=== PATIENT | female | born 1990 | race Caucasian/White ===

== ENCOUNTER 2016-10-03 05:00 | Emergency (ER) | payer BC ==
[~2016-10-03] VITALS: Wt 97.5 kg
[2016-10-03 05:31] LABS: ADD SCAN DIFF NO
[2016-10-03 05:32] LABS: BASOPHILS % 0.4 % (0.0-2.0); EOSINOPHILS # 0.2 10^3/ul (0.0-0.5); EOSINOPHILS % 1.6 % (0.0-7.0); HEMATOCRIT 39.4 % (37.0-47.0); HEMOGLOBIN 13.3 g/dl (12.0-16.0); LYMPHOCYTES # 2.6 10^3/ul (0.8-2.9); LYMPHOCYTES % 27.9 % (15.0-51.0); MEAN CORPUSCULAR HEMOGLOBIN 28.7 pg (29.0-33.0); MEAN CORPUSCULAR HGB CONC 33.8 g/dl (32.0-37.0); MEAN CORPUSCULAR VOLUME 84.9 fl (82.0-101.0); MONOCYTE # 0.4 10^3/ul (0.3-0.9); MONOCYTES % 4.2 % (0.0-11.0); NEUTROPHILS % 65.1 % (39.0-77.0); PLATELET COUNT 317 10^3/UL (140-415); RED BLOOD COUNT 4.64 10^6/ul (4.20-5.40); WHITE BLOOD COUNT 9.2 10^3/ul (4.8-10.8)
[2016-10-03 05:47] LABS: ALBUMIN 3.9 g/dl (3.3-4.9); POTASSIUM 3.5 mmol/L (3.5-5.1)
[2016-10-03 05:49] LABS: CREATININE 0.7 mg/dl (0.44-1.00); INR 0.9; PROTIME 12.1 Sec (12.2-14.2); PT RATIO 0.9
[2016-10-03 05:50] LABS: ALBUMIN/GLOBULIN RATIO 1.14; BILIRUBIN,INDIRECT 0.3 mg/dl (0-1.1); BILIRUBIN,TOTAL 0.3 mg/dl (0.2-1.3); CALCIUM 8.7 mg/dl (8.4-10.2); TOTAL PROTEIN 7.3 g/dl (6.1-8.1)
--- NOTE | 2016-10-03 05:58 | RADRPT ---
PROCEDURE: ULTRASOUND LIMITED ABDOMEN CLINICAL INDICATION: 25-year-old female with abdominal pain. TECHNIQUE: Multiple sonographic of the right upper quadrant of the abdomen were obtained. The imag es were reviewed on a PACS workstation. COMPARISON: None. FINDINGS: The pancreas is partially visualized and is otherwise without abnormal echogenicity. The liver displays normal echogenicity. The liver measures 18.1 cm in length. No evidence of intrah epatic biliary ductal dilatation is seen. The portal and hepatic veins are unremarkable. The gallbladder retains multiple small mobile shadowing stones. Gallbladder wall is mildly thickene d measuring 3.7 mm. No pericholecystic fluid is seen. The common bile duct measures 8.6 mm and is no t dilated. The right kidney displays normal echogenicity. The right kidney measures 10.4 cm. No caliectasis or hydronephrosis is seen. No free fluid is seen. IMPRESSION: Cholelithiasis with mildly thickened gallbladder wall. .Shaquille Wiseman MD, MD Date Time Electronically viewed and signed by .Shaquille Wiseman MD, on 10/03/2016 05:58 .M/
[2016-10-03] MEDS ORDERED: KETOROLAC 15 MG INJ IV STA (06:25)
[2016-10-03] MEDS ORDERED: SOD CHLORIDE 0.9% 1,000 ML IV STA (06:25)
[2016-10-03] MEDS ORDERED: ONDANSETRON 4 MG INJ IV STA (06:25)
--- NOTE | 2016-10-03 06:38 | ERD ---
ER Documentation Chief Complaint Date/Time DATE: 10/03/16 TIME: 06:10 Chief Complaint epigastric pain and Left upper Quadrant pain, nausea x2 weeks HPI 25-year-old female ambulatory to the ED complaining of a 2 week history of intermittent, worsening, moderate to severe, nonradiating sharp and achy epigastric/right upper quadrant pain. On the first several days of the symptoms had some mild, nonbloody, non-mucoid diarrhea which is resolved but continues to have nausea but no vomiting. No chest pain or palpitations. No shortness of breath or cough. No skin rash. Denies dysuria, polyuria, hematuria or flank pain. No vaginal discharge or bleeding. No relieving or exacerbating factors. No fevers or chills. The pain became severe earlier this morning and she went to an urgent care was treated with tramadol for pain and referred to the ED for further evaluation. ROS All systems reviewed and are negative except as per history of present illness. Allergies Allergies: Coded Allergies: No Known Allergy (Unverified , 10/03/16) PMhx/Soc Reviewed in chart, as per HPI Medical and Surgical Hx: pt denies Medical Hx, pt denies Surgical Hx History of Surgery: Yes Anesthesia Reaction: No Hx Neurological Disorder: No Hx Respiratory Disorders: No Hx Cardiac Disorders: No Hx Psychiatric Problems: No Hx Miscellaneous Medical Probl: No Hx Alcohol Use: No Hx Substance Use: No Hx Tobacco Use: No Smoking Status: Never smoker FmHx No diabetes, stroke or cancer. Mother: Cholecystectomy Physical Exam Vitals Vital Signs Date Time Temp Pulse Resp B/P Pulse Ox O2 Delivery O2 Flow Rate FiO2 10/03/16 05:04 97.9 59 20 135/76 99 Physical Exam Const: Alert, moderate distress due to pain. Head: Atraumatic Eyes: Sclera anicteric, conjunctiva noninjected ENT: Normal External Ears, Nose and Mouth. Neck: Full range of motion. Nontender. Resp: Breath sounds are equal and clear to auscultation bilaterally Cardio: Regular rate and rhythm, no murmurs Abd: Soft, obese. Mild to moderate epigastric and right upper quadrant tenderness. Negative Khan sign. No rebound or guarding. No right lower quadrant tenderness or McBurney's point tenderness. Skin: No petechiae or rashes Back: No midline or flank tenderness. No CVA tenderness Ext: No cyanosis, or edema Neur: Awake and alert. No focal deficit observed. Psych: Normal Mood and Affect. Patient does not appear anxious or depressed. Result Diagram: 10/03/1651910/03/16519 Results 24 hrs Laboratory Tests Test 10/03/16 05:20 White Blood Count 9.210^3/ul Red Blood Count 4.6410^6/ul Hemoglobin 13.3g/dl Hematocrit 39.4% Mean Corpuscular Volume 84.9fl Mean Corpuscular Hemoglobin 28.7pg Mean Corpuscular Hemoglobin Concent 33.8g/dl Red Cell Distribution Width 13.0% Platelet Count 25189^3/UL Mean Platelet Volume 10.0fl Neutrophils % 65.1% Lymphocytes % 27.9% Monocytes % 4.2% Eosinophils % 1.6% Basophils % 0.4% Nucleated Red Blood Cells % 0.0/100WBC Neutrophils # 6.010^3/ul Lymphocytes # 2.610^3/ul Monocytes # 0.410^3/ul Eosinophils # 0.210^3/ul Basophils # 0.010^3/ul Nucleated Red Blood Cells # 0.010^3/ul Prothrombin Time 12.1Sec Prothrombin Time Ratio 0.9 INR International Normalized Ratio 0.90 Sodium Level 143mmol/L Potassium Level 3.5mmol/L Chloride Level 104mmol/L Carbon Dioxide Level 26mmol/L Anion Gap 17 Blood Urea Nitrogen 14mg/dl Creatinine 0.70mg/dl Glucose Level 96mg/dl Calcium Level 8.7mg/dl Total Bilirubin 0.3mg/dl Direct Bilirubin 0.00mg/dl Indirect Bilirubin 0.3mg/dl Aspartate Amino Transf (AST/SGOT) 29IU/L Alanine Aminotransferase (ALT/SGPT) 54IU/L Alkaline Phosphatase 66IU/L Total Protein 7.3g/dl Albumin 3.9g/dl Globulin 3.40g/dl Albumin/Globulin Ratio 1.14 Lipase 246U/L Serum HCG, Qualitative NEGATIVE Current Medications Medications (Trade) Dose Ordered Sig/Susan Route PRN Reason Start Time Stop Time Status Last Admin Dose Admin Sodium Chloride (NS) 1,000 ml @ 1,000 mls/hr Q1H STAT IV 10/03/16 06:25 10/03/16 07:24 Ondansetron HCl (Zofran Inj) 4 mg ONCE STAT IV 10/03/16 06:25 10/03/16 06:26 DC Ketorolac Tromethamine (Toradol) 15 mg ONCE STAT IV 10/03/16 06:25 10/03/16 06:26 DC IMAGING: PROCEDURE: ULTRASOUND LIMITED ABDOMEN CLINICAL INDICATION: 25-year-old female with abdominal pain. TECHNIQUE: Multiple sonographic of the right upper quadrant of the abdomen were obtained. The images were reviewed on a PACS workstation. COMPARISON: None. FINDINGS: The pancreas is partially visualized and is otherwise without abnormal echogenicity. The liver displays normal echogenicity. The liver measures 18.1 cm in length. No evidence of intrahepatic biliary ductal dilatation is seen. The portal and hepatic veins are unremarkable. The gallbladder retains multiple small mobile shadowing stones. Gallbladder wall is mildly thickened measuring 3.7 mm. No pericholecystic fluid is seen. The common bile duct measures 8.6 mm and is not dilated. The right kidney displays normal echogenicity. The right kidney measures 10.4 cm. No caliectasis or hydronephrosis is seen. No free fluid is seen. IMPRESSION: Cholelithiasis with mildly thickened gallbladder wall. .Shaquille Wiseman MD, MD Date Time Electronically viewed and signed by .Shaquille Wiseman MD, MD on 10/03/2016 05:58 .M/ Procedures/MDM DOCUMENTS REVIEWED: ED nurse, no prior records MEDICAL DECISION MAKIN-year-old female ambulatory to the ED complaining of a 2 week history of intermittent, worsening, moderate to severe, nonradiating sharp and achy epigastric/right upper quadrant pain. Presentation and ultrasound consistent with cholelithiasis. Ultrasound reveals borderline gallbladder wall thickening without common bile duct dilatation, pericholecystic fluid or other signs of cholecystitis or choledocholithiasis. LFTs and lipase are normal. No pancreatitis or cholangitis. No right or left lower quadrant tenderness signs of appendicitis or appendicitis. Doubt bowel obstruction. Not . No urinary tract infection or pyelonephritis. Abdomen exam is otherwise benign without rebound, guarding or signs of peritonitis. Pain resolved with analgesics, antiemetics and IV hydration. Stable for discharge with precautionary instructions and outpatient follow-up as counseled. Counseled patient and regarding diagnostic workup, diagnosis and need for followup. Understands to return to ED if symptoms recur, worsen or any other concerns. Departure Diagnosis: Primary Impression: Acute abdominal pain in right upper quadrant Additional Impressions: Cholelithiasis Cholelithiasis location: gallbladder Cholecystitis presence: without cholecystitis Biliary obstruction: without biliary obstruction Qualified Code : K80.20 - Calculus of gallbladder without cholecystitis without obstruction Biliary colic Condition: Stable (Improved) REBECCA JOEL MD October 03, 2016 06:38
[2016-10-03] MEDS ORDERED: CIPR500T4 PO (06:40)
[2016-10-03] MEDS ORDERED: ONDA4TAB14 PO (06:40)
[2016-10-03] MEDS ORDERED: HYDR-906 PO (06:40)
[2016-10-03] MEDS ORDERED: morphine 4 MG/ML VIAL IV STA (07:15)
[2016-10-03 07:26] LABS: ADD UMIC NO; URINE BILIRUBIN (Dip) NEGATIVE (NEGATIVE); URINE BLOOD (Dip) NEGATIVE (NEGATIVE); URINE COLOR LT. YELLOW (YELLOW); URINE GLUCOSE (Dip) NEGATIVE (NEGATIVE); URINE KETONES (Dip) NEGATIVE (NEGATIVE); URINE LEUKOCYTE ESTERASE (Dip) NEGATIVE (NEGATIVE); URINE NITRITE (Dip) NEGATIVE (NEGATIVE); URINE TOTAL PROTEIN (Dip) NEGATIVE (NEGATIVE); URINE UROBILINOGEN (Dip) 0.2 E.U./dL (0.1-1.0)
[2016-10-03 07:27] VITALS: BP 103/53; PULSE 55; RESP 18; TEMP 97.9
[2016-10-03] MEDS ORDERED: HYDROCODONE/APAP (5/325) TAB PO ONE (08:30)
== END 2016-10-03 08:25 | disposition home or self-care (01) ==
LOC: E/R 05:00
DX: R10.11 Right upper quadrant pain (principal); K80.70 Calculus of gallbladder and bile duct without cholecystitis without obstruction
CPT/HCPCS: 36415; 76705; 80053; 81003; 83690; 84703; 85025; 85610; 96374; 96375; J1885; J2270; J2405; J7030; Z7502; Z7610

== ENCOUNTER → 2017-05-11 | Emergency (ER) | payer BC ==
[~2017-05-11] VITALS: Ht 160 cm; Wt 98.4 kg
[~2017-05-11] MED LIST: ACETAMINOPHEN 325 MG TAB PO ONE; CIPR500T4 PO; HYDR-906 PO; IBUP-1542 PO; IBUPROFEN 600 MG TAB PO ONE; ONDA4TAB14 PO; PHEN-538 PO
[2017-05-11 21:43] VITALS: Ht 160 cm; Wt 98.4 kg
--- NOTE | 2017-05-11 23:00 | ERD ---
ER Documentation Chief Complaint Chief Complaint painful urination x 2 weeks HPI 26-year-old female presents here to emergency department for complaints of dysuria hematuria that started 2 weeks ago, worse today. Started to have fever today. Patient's complaint of pain upon urination, burning pain,6/10 scale, accompanied with urinary urgency and frequency. Patient any flank pain. Patient denies any vaginal itching or vaginal discharge. ROS All systems reviewed and are negative except as per history of present illness. Medications Home Meds Active Scripts Ciprofloxacin Hcl* (Ciprofloxacin Hcl*) 500 Mg Tablet, 500 MG PO BID for 7 Days , TAB Prov:REBECCA JOEL MD 10/03/16 Hydrocodone/Acetaminophen ([place] 5-325 Tablet) 1 Each Tablet, 1 TAB PO Q6H Y for PAIN, #12 TAB Prov:REBECCA JOEL MD 10/03/16 Ondansetron (Ondansetron Odt) 4 Mg Tab.rapdis, 4 MG PO Q6H Y for NAUSEA AND/OR VOMITING, #10 TAB Prov:REBECCA JOEL MD 10/03/16 Allergies Allergies: Coded Allergies: No Known Allergy (Unverified , 10/03/16) PMhx/Soc Medical and Surgical Hx: pt denies Medical Hx History of Surgery: Yes Anesthesia Reaction: No Hx Neurological Disorder: No Hx Respiratory Disorders: No Hx Cardiac Disorders: No Hx Psychiatric Problems: No Hx Miscellaneous Medical Probl: No Hx Alcohol Use: No Hx Substance Use: No Hx Tobacco Use: No Smoking Status: Never smoker FmHx Family History: No coronary disease, No diabetes, No other Physical Exam Vitals Vital Signs Date Time Temp Pulse Resp B/P Pulse Ox O2 Delivery O2 Flow Rate FiO2 05/11/17 21:43 100.7 102 20 132/77 97 Physical Exam GENERAL: The patient is well developed and appropriate for usual state of health, in no apparent distress. CHEST: Clear to auscultation bilaterally. There are no rales, wheezes or rhonchi. HEART: Regular rate and rhythm. No murmurs, clicks, rubs or gallops. No S3 or S4. ABDOMEN: Soft, nontender and nondistended. Good bowel sounds. No rebound or guarding. No gross peritonitis. No gross organomegaly or masses. No Khan sign or McBurney point tenderness. BACK: No midline or flank tenderness. EXTREMITIES: Equal pulses bilaterally. There is no peripheral clubbing, cyanosis or edema. No focal swelling or erythema. Full range of motion. Grossly neurovascularly intact. NEURO: Alert and oriented. Cranial nerves 2-12 intact. Motor strength in all 4 extremities with 5/5 strength. Sensation grossly intact. Normal speech and gait. SKIN: There is no apparent rash or petechia. The skin is warm and dry. HEMATOLOGIC AND LYMPHATIC: There is no evidence of excessive bruising or lymphedema. No gross cervical, axillary, or inguinal lymphadenopathy. Results 24 hrs Laboratory Tests Test 05/11/17 23:13 Bedside Urine pH (LAB) 6.0 Bedside Urine Protein (LAB) 1+ Bedside Urine Glucose (UA) Negative Bedside Urine Ketones (LAB) Negative Bedside Urine Blood 2+ Bedside Urine Nitrite (LAB) Negative Bedside Urine Leukocyte Esterase (L 1+ Current Medications Medications (Trade) Dose Ordered Sig/Susan Route PRN Reason Start Time Stop Time Status Last Admin Dose Admin Ibuprofen (Motrin) 600 mg ONCE ONCE PO 05/11/17 23:00 05/11/17 23:01 DC 05/11/17 23:05 Acetaminophen (Tylenol Tab) 650 mg ONCE ONCE PO 05/11/17 23:00 12 23:01 DC 05/11/17 23:05 Patient was given medicines for fever control here in the emergency department. After treatment, patient temperature improved and lower. Patient appears well and is hemodynamically stable. Procedures/MDM Medical Decision Making: Patients symptoms are consistent with urinary tract infection. There is low suspicion for pyelonephritis. There is low suspicion for abdominal emergencies at this time. Patients abdominal exam is normal. There is low suspicion for sepsis. Patient appears well and is hemodynamically stable. Disposition: Home. Stable Prescription ciprofloxacin, Pyridium, ibuprofen Tylenol Instructions: Patient is advised to take medications as prescribed. Patient is advised to rest, increase fluid intake and do good perineal hygiene. Patient is advised that if symptoms are worse, severe abdominal pain, uncontrolled vomiting , high fever, severe flank pain, worst signs and symptoms, to return to the emergency department immediately. Otherwise, patient can follow up with primary care doctor in 5-7 days. Disclaimer: Inadvertent spelling and grammatical errors are likely due to EHR/ dictation software use and do not reflect on the overall quality of patient care. Also, please note that the electronic time recorded on this note does not necessarily reflect the actual time of the patient encounter. Departure Diagnosis: Primary Impression: UTI (urinary tract infection) Urinary tract infection type: acute cystitis Hematuria presence: without hematuria Qualified Code: N30.00 - Acute cystitis without hematuria Condition: Stable Patient Instructions: Understanding Urinary Tract Infections (UTIs) Additional Instructions: Patient is advised to take medications as prescribed. Patient is advised to rest , increase fluid intake and do good perineal hygiene. Patient is advised that if symptoms are worse, severe abdominal pain, uncontrolled vomiting, high fever , severe flank pain, worst signs and symptoms, to return to the emergency department immediately. Otherwise, patient can follow up with primary care doctor in 5-7 days. NABOR PATEL NP May 11, 2017 23:00
[2017-05-11 23:12] LABS: URINE BLOOD (Dip) POC 2+ (NEGATIVE)
[2017-05-11 23:52] VITALS: BP 128/75; PULSE 90; RESP 20; TEMP 99.5
== END | disposition home or self-care (01) ==
LOC: FTE 21:41
DX: N39.0 Urinary tract infection, site not specified (principal)
CPT/HCPCS: 81003; Z7610; 99283

== ENCOUNTER 2017-07-15 00:14 | Emergency (ER) | END 2017-07-15 07:38 | disposition home or self-care (01) ==

== ENCOUNTER 2018-07-17 09:26 | Emergency (ER) | payer BC ==
[~2018-07-17] VITALS: Ht 172.7 cm; Wt 115.0 kg
[~2018-07-17 09:26] MED LIST changes: -ACETAMINOPHEN 325 MG TAB PO ONE; +HYDR-4011 PO; -HYDR-906 PO; -IBUPROFEN 600 MG TAB PO ONE; +NITR-58 PO; +PHEN-537 PO
[2018-07-17 09:31] VITALS: Ht 172.7 cm; Wt 115.0 kg
[2018-07-17] MEDS ORDERED: ALBUTEROL 0.083% (NEB) 2.5 MG/3 ML AMP HHN STA (10:35)
[2018-07-17] MEDS ORDERED: predniSONE 20 MG TAB PO ONE (11:00)
[2018-07-17] MEDS ORDERED: PRED20TA PO (11:36)
[2018-07-17] MEDS ORDERED: D-ME473S2 PO (11:37)
[2018-07-17] MEDS ORDERED: ALBU18HF INHALATION (11:37)
--- NOTE | 2018-07-17 11:39 | ERD ---
ER Documentation Chief Complaint Chief Complaint Complains of a cough x 3 days HPI 27-year-old female presents with coughing for the last 6 days. She may have wheeze at home. She denies any previous history of wheezing or asthma. She has a child at home who is being treated for wheezing and recent URI as well. She has no fevers, chest pain, vomiting, abdominal pain. ROS All systems reviewed and are negative except as per history of present illness. Medications Home Meds Active Scripts Dextromethorphan Hb-Promethazine Hcl* (Promethazine DM* Syrup) 473 Ml Syrup, 5 ML PO Q6 PRN for COUGH for 5 Days, ML Prov:JACQUIE NICOLAS MD 07/17/18 Albuterol Sulfate* (Ventolin HFA*) 18 Gm Hfa.aer.ad, 2 PUFF INHALATION Q4H, #1 INHALER Prov:JACQUIE NICOLAS MD 07/17/18 Prednisone* (Prednisone*) 20 Mg Tab, 60 MG PO DAILY for 4 Days, TAB Start July 18, 2018 Prov:JACQUIE NICOLAS MD 07/17/18 Phenazopyridine Hcl* (Pyridium*) 100 Mg Tab, 100 MG PO TID PRN for URINARY PAIN, #8 TAB Prov:YOLANDA ROSAS NP 07/15/17 Nitrofurantoin Monohyd Macrocr* (Macrobid*) 100 Mg Capsr, 100 MG PO BID for 5 Days, CAP Prov:YLOANDA ROSAS NP 07/15/17 Ibuprofen* (Motrin*) 600 Mg Tab, 600 MG PO Q6H PRN for PAIN AND OR ELEVATED TEMP, #30 TAB Prov:NABOR PATEL NP 05/11/17 Ciprofloxacin Hcl* (Ciprofloxacin Hcl*) 500 Mg Tablet, 500 MG PO BID for 10 Days, TAB Prov:NABOR PATEL NP 05/11/17 Phenazopyridine Hcl* (Pyridium*) 200 Mg Tab, 200 MG PO TID PRN for URINARY PAIN, #6 TAB Prov:NABOR PATEL NP 05/11/17 Ciprofloxacin Hcl* (Ciprofloxacin Hcl*) 500 Mg Tablet, 500 MG PO BID for 7 Days, TAB Prov:REBECCA JOEL MD 10/03/16 Hydrocodone/Acetaminophen ([place] 5-325 Tablet) 1 Each Tablet, 1 TAB PO Q6H PRN for PAIN, #12 TAB Prov:REBECCA JOEL MD 10/03/16 Ondansetron (Ondansetron Odt) 4 Mg Tab.rapdis, 4 MG PO Q6H PRN for NAUSEA AND/OR VOMITING, #10 TAB Prov:REBECCA JOEL MD 10/03/16 Allergies Allergies: Coded Allergies: No Known Allergy (Unverified , 10/03/16) PMhx/Soc History of Surgery: Yes (niya) Anesthesia Reaction: No Hx Neurological Disorder: No Hx Respiratory Disorders: No Hx Cardiac Disorders: No Hx Psychiatric Problems: No Hx Miscellaneous Medical Probl: No Hx Alcohol Use: Yes (social) Hx Substance Use: No Hx Tobacco Use: No FmHx Family History: No diabetes, No coronary disease, No other Physical Exam Vitals Vital Signs Date Temp Pulse Resp B/P (MAP) Pulse Ox O2 O2 Flow FiO2 Time Delivery Rate 07/17/18 82 18 96 21 10:57 07/17/18 98.8 58 20 135/90 97 09:31 (105) Physical Exam Const: No acute distress Head: Atraumatic Eyes: Normal Conjunctiva ENT: Normal External Ears, Nose and Mouth. TMs and oropharynx normal. Neck: Full range of motion. No meningismus. Resp: Clear to auscultation bilaterally. Mild wheeze without rales or retractions. Cardio: Regular rate and rhythm, no murmurs Abd: Soft, non tender, non distended. Normal bowel sounds Skin: No petechiae or rashes Back: No midline or flank tenderness Ext: No cyanosis, or edema Neur: Awake and alert Psych: Normal Mood and Affect Results 24 hrs Current Medications Medications Dose Sig/Susan Start Time Status Last (Trade) Ordered Route PRN Stop Time Admin Dose Reason Admin Prednisone 60 mg ONCE ONCE 07/17/18 DC 07/17/18 (Prednisone) PO 11:00 10:42 07/17/18 11:01 Albuterol 5 mg ONCE STAT 07/17/18 DC 07/17/18 (Proventil HHN 10:35 10:57 0.083% (Neb)) 07/17/18 10:36 Procedures/MDM Patient given prednisone 60 mg by mouth and albuterol treatment. Patient resents with URI symptoms with mild wheezing. She has no signs of pneumonia, respiratory distress, hypoxemia. No comment of chest pain or abdominal pain or additional concerning complaints or findings. She likely has a viral URI with wheezing will be treated with short course prednisone, Ventolin, promethazine D M, primary care follow-up and return precautions. The patient was stable with no new complaints during the ER course. Clinically, there is no current evidence to suggest meningitis, sepsis, acute abdomen, pneumonia, stroke, acute coronary syndrome, pulmonary embolism, aortic dissection or any other emergent condition appearing to require further evaluation or hospitalization. Patient counseled regarding my diagnostic impression and care plan. Prior to discharge all questions answered. Pt agrees with treatment plan and understands strict return precautions. Pt is instructed to follow up with primary care provider within 24- 48 hours. Precautionary instructions provided including instructions to return to the ER if not improving or for any worsening or changing symptoms or concerns. Departure Diagnosis: Primary Impression: Wheeze Additional Impression: Cough Condition: Stable Patient Instructions: Uri, Viral W/ Wheezing (Adult) Additional Instructions: Likely viral illness should resolve in next 3-5 days. Recheck for new or worsening symptoms with primary care doctor. JACQUIE NICOLAS MD Jul 17, 2018 11:39
[2018-07-17 11:53] VITALS: BP 158/90; PULSE 75; RESP 20
== END 2018-07-17 11:44 | disposition home or self-care (01) ==
LOC: FTE 09:26
DX: R06.2 Wheezing (principal)
CPT/HCPCS: 94664; J7512; Z7502; Z7610

== ENCOUNTER 2018-10-24 03:09 | Emergency (ER) | payer BC ==
[~2018-10-24] VITALS: Ht 160 cm; Wt 116.1 kg
[~2018-10-24 03:09] MED LIST changes: +ALBU18HF INHALATION; +D-ME473S2 PO; +PRED20TA PO
[2018-10-24 03:13] VITALS: BP 143/69; PULSE 102; RESP 20; Ht 160 cm; Wt 116.1 kg
[2018-10-24] MEDS ORDERED: HYDR-4011 PO (03:44)
[2018-10-24] MEDS ORDERED: IBUP800T48 PO (03:44)
[2018-10-24] MEDS ORDERED: CYCL10TA7 PO (03:44)
--- NOTE | 2018-10-24 03:46 | ERD ---
ER Documentation Chief Complaint Chief Complaint bilatera wrist pain x 1 month, hx of carpal tunnel with surgery HPI 28-year-old female is here for bilateral wrist pain worse on the right. She has history of carpal tunnel surgery bilaterally done 1 month ago. She presents she has not yet called her surgeon to follow-up. No fever. Takes aspirin at home without any relief. She does states that she is having difficulty holding of objects and drops things. ROS All systems reviewed and are negative except as per history of present illness. Medications Home Meds Active Scripts Hydrocodone/Acetaminophen ([place] 5-325 Tablet) 1 Each Tablet, 1 TAB PO Q6H PRN for PAIN, #7 TAB Prov:QUINN LY PA-C 10/24/18 Ibuprofen* (Motrin*) 800 Mg Tab, 800 MG PO Q6, #30 TAB Prov:QUINN LY PA-C 10/24/18 Cyclobenzaprine Hcl* (Cyclobenzaprine Hcl*) 10 Mg Tablet, 10 MG PO BID, #15 TAB Prov:QUINN LY PA-C 10/24/18 Dextromethorphan Hb-Promethazine Hcl* (Promethazine DM* Syrup) 473 Ml Syrup, 5 ML PO Q6 PRN for COUGH for 5 Days, ML Prov:JACQUIE NICOLAS MD 07/17/18 Albuterol Sulfate* (Ventolin HFA*) 18 Gm Hfa.aer.ad, 2 PUFF INHALATION Q4H, #1 INHALER Prov:JACQUIE NICOLAS MD 07/17/18 Prednisone* (Prednisone*) 20 Mg Tab, 60 MG PO DAILY for 4 Days, TAB Start July 18, 2018 Prov:JACQUIE NICOLAS MD 07/17/18 Phenazopyridine Hcl* (Pyridium*) 100 Mg Tab, 100 MG PO TID PRN for URINARY PAIN, #8 TAB Prov:YOLANDA ROSAS NP 07/15/17 Nitrofurantoin Monohyd Macrocr* (Macrobid*) 100 Mg Capsr, 100 MG PO BID for 5 D ays, CAP Prov:YOLANDA ROSAS NP 07/15/17 Ibuprofen* (Motrin*) 600 Mg Tab, 600 MG PO Q6H PRN for PAIN AND OR ELEVATED TEMP, #30 TAB Prov:NABOR PATEL NP 05/11/17 Ciprofloxacin Hcl* (Ciprofloxacin Hcl*) 500 Mg Tablet, 500 MG PO BID for 10 Days, TAB Prov:NABOR PATEL NP 05/11/17 Phenazopyridine Hcl* (Pyridium*) 200 Mg Tab, 200 MG PO TID PRN for URINARY PAIN, #6 TAB Prov:NBAOR PATEL NP 05/11/17 Ciprofloxacin Hcl* (Ciprofloxacin Hcl*) 500 Mg Tablet, 500 MG PO BID for 7 Days, TAB Prov:REBECCA JOEL MD 10/03/16 Hydrocodone/Acetaminophen ([place] 5-325 Tablet) 1 Each Tablet, 1 TAB PO Q6H PRN for PAIN, #12 TAB Prov:REBECCA JOEL MD 10/03/16 Ondansetron (Ondansetron Odt) 4 Mg Tab.rapdis, 4 MG PO Q6H PRN for NAUSEA AND/OR VOMITING, #10 TAB Prov:REBECCA JOEL MD 10/03/16 Allergies Allergies: Coded Allergies: No Known Allergy (Unverified , 10/03/16) PMhx/Soc History of Surgery: Yes (niya) Anesthesia Reaction: No Hx Neurological Disorder: No Hx Respiratory Disorders: No Hx Cardiac Disorders: No Hx Psychiatric Problems: No Hx Miscellaneous Medical Probl: No Hx Alcohol Use: Yes (social) Hx Substance Use: No Hx Tobacco Use: No Smoking Status: Never smoker FmHx Family History: No diabetes Physical Exam Vitals Vital Signs Date Temp Pulse Resp B/P (MAP) Pulse Ox O2 O2 Flow FiO2 Time Delivery Rate 10/24/18 98.9 102 20 143/69 97 03:13 (93) Physical Exam Const: No acute distress Head: Atraumatic Eyes: Normal Conjunctiva ENT: Normal External Ears, Nose and Mouth. Neck: Full range of motion. No meningismus. Resp: Clear to auscultation bilaterally Cardio: Regular rate and rhythm, no murmurs Hand - bilateral: Skin: Healing scars on bilateral wrists Compartments: Soft Sensation: Intact shoulder/pinky/middle finger/thumb web space Bones: Nontender Snuffbox: Nontender Joints: No effusion Wrist: Flex/Ext: Normal Uln/Radial deviation: Normal Pron/Supination Normal Finger: Flex/Ext: Normal Add/abd: Normal Thumb: Flex/Ext: Normal Opposition: Normal Thumbs up: Normal Results 24 hrs Current Medications Medications Dose Sig/Susan Start Time Status Last (Trade) Ordered Route PRN Stop Time Admin Dose Reason Admin 650 mg ONCE ONCE 10/24/18 Acetaminophen PO 04:00 (Tylenol 10/24/18 04:01 Tab) Ibuprofen 600 mg ONCE ONCE 10/24/18 (Motrin) PO 04:00 10/24/18 04:01 Procedures/MDM Patient has flareup of carpal tunnel pain. She was given Tylenol and Motrin here prescription for ibuprofen Flexeril and [place]. She was told to follow-up with her surgeon and call tomorrow to make follow-up appointment. Patient counseled regarding my diagnostic impression and care plan. Prior to discharge all questions answered. Pt agrees with treatment plan and understands strict return precautions. Pt is instructed to follow up with primary care provider within 24-48 hours. Precautionary instructions provided including instructions to return to the ER if not improving or for any worsening or changing symptoms or concerns. Departure Diagnosis: Primary Impression: Pain in wrist Condition: Stable Patient Instructions: Carpal Tunnel Syndrome Prevention Tips Additional Instructions: Call your primary care doctor TOMORROW for an appointment during the next 1-2 days.See the doctor sooner or return here if your condition worsens before your appointment time. QUINN LY PA-C October 24, 2018 03:46
[2018-10-24] MEDS ORDERED: ACETAMINOPHEN 325 MG TAB PO ONE (04:00)
[2018-10-24] MEDS ORDERED: IBUPROFEN 600 MG TAB PO ONE (04:00)
== END 2018-10-24 04:14 | disposition home or self-care (01) ==
LOC: FTE 03:09
DX: M25.531 Pain in right wrist (principal); M25.532 Pain in left wrist
CPT/HCPCS: Z7610 ×2; 99283

== ENCOUNTER 2018-12-31 20:51 | Emergency (ER) | payer BC ==
[~2018-12-31] VITALS: Ht 160 cm; Wt 116.1 kg
[~2018-12-31 20:51] MED LIST changes: +CYCL10TA7 PO; +IBUP800T48 PO; +PENI500T PO
[2018-12-31 20:56] VITALS: Ht 160 cm; Wt 116.1 kg
[2018-12-31] MEDS ORDERED: KETOROLAC 30 MG INJ IV STA (22:16)
[2018-12-31] MEDS ORDERED: ONDANSETRON 4 MG INJ IV STA (22:16)
[2018-12-31] MEDS ORDERED: DEXAMETHASONE 10 MG/ML 1 ML INJ IV ONE (22:30)
--- NOTE | 2018-12-31 22:43 | ERD ---
ER Documentation Chief Complaint Chief Complaint ABD PAIN WITH NAUSEA, NO VOMITING; ST X2DAYS HPI 28-year-old female presents with complaint of epigastric pain with associated nausea for the past 2 days. In addition states is been having some fevers. Patient is ambulatory. Denies vominting, diarrhea, constipation, hematochezia, hematemesis, biliary emesis, right lower quadrant pain, recent travel, shortness of breath, chest pain, diaphoresis,, dysphagia, weight loss, polyuria, diabetes, history of atherosclerosis. ROS All systems reviewed and are negative except as per history of present illness. Medications Home Meds Active Scripts Penicillin V Potassium* (Penicillin V K*) 500 Mg Tab, 500 MG PO TID for 10 Days, TAB Prov:ANGELI WIGGINS 12/31/18 Ibuprofen* (Motrin*) 600 Mg Tab, 600 MG PO Q6H PRN for PAIN AND OR ELEVATED TEMP, #30 TAB Prov:ANGELI WIGGINS 12/31/18 Hydrocodone/Acetaminophen (Mccarley 5-325 Tablet) 1 Each Tablet, 1 TAB PO Q6H PRN for PAIN, #7 TAB Prov:QUINN LY PA-C 10/24/18 Ibuprofen* (Motrin*) 800 Mg Tab, 800 MG PO Q6, #30 TAB Prov:QUINN LY PA-C 10/24/18 Cyclobenzaprine Hcl* (Cyclobenzaprine Hcl*) 10 Mg Tablet, 10 MG PO BID, #15 TAB Prov:QUINN LY PA-C 10/24/18 Dextromethorphan Hb-Promethazine Hcl* (Promethazine DM* Syrup) 473 Ml Syrup, 5 ML PO Q6 PRN for COUGH for 5 Days, ML Prov:JACQUIE NICOLAS MD 07/17/18 Albuterol Sulfate* (Ventolin HFA*) 18 Gm Hfa.aer.ad, 2 PUFF INHALATION Q4H, #1 INHALER Prov:JACQUIE NICOLAS MD 07/17/18 Prednisone* (Prednisone*) 20 Mg Tab, 60 MG PO DAILY for 4 Days, TAB Start July 18, 2018 Prov:JACQUIE NICOLAS MD 07/17/18 Phenazopyridine Hcl* (Pyridium*) 100 Mg Tab, 100 MG PO TID PRN for URINARY PAIN, #8 TAB Prov:YOLANDA ROSASMaria Del Rosario LONG 07/15/17 Nitrofurantoin Monohyd Macrocr* (Macrobid*) 100 Mg Capsr, 100 MG PO BID for 5 Days, CAP Prov:YOLANDA ROSASMaria Del Rosario LONG 07/15/17 Ibuprofen* (Motrin*) 600 Mg Tab, 600 MG PO Q6H PRN for PAIN AND OR ELEVATED TEMP, #30 TAB Prov:NABOR PATEL NP 05/11/17 Ciprofloxacin Hcl* (Ciprofloxacin Hcl*) 500 Mg Tablet, 500 MG PO BID for 10 Days, TAB Prov:NABOR PATEL NP 05/11/17 Phenazopyridine Hcl* (Pyridium*) 200 Mg Tab, 200 MG PO TID PRN for URINARY PAIN, #6 TAB Prov:NABOR PATEL NP 05/11/17 Ciprofloxacin Hcl* (Ciprofloxacin Hcl*) 500 Mg Tablet, 500 MG PO BID for 7 Days, TAB Prov:REBECCA JOEL MD 10/03/16 Hydrocodone/Acetaminophen (Mccarley 5-325 Tablet) 1 Each Tablet, 1 TAB PO Q6H PRN for PAIN, #12 TAB Prov:REBECCA JOEL MD 10/03/16 Ondansetron (Ondansetron Odt) 4 Mg Tab.rapdis, 4 MG PO Q6H PRN for NAUSEA AND/OR VOMITING, #10 TAB Prov:REBECCA JOEL MD 10/03/16 Allergies Allergies: Coded Allergies: No Known Allergy (Unverified , 10/03/16) PMhx/Soc History of Surgery: Yes (niya, bilateral carpel tunnel) Anesthesia Reaction: No Hx Neurological Disorder: No Hx Respiratory Disorders: No Hx Cardiac Disorders: No Hx Psychiatric Problems: No Hx Miscellaneous Medical Probl: Yes (Carpal Tunnel) Hx Alcohol Use: Yes (social) Hx Substance Use: No Hx Tobacco Use: No Smoking Status: Never smoker FmHx Family History: No diabetes, No coronary disease, No other Physical Exam Vitals Vital Signs Date Temp Pulse Resp B/P (MAP) Pulse Ox O2 O2 Flow FiO2 Time Delivery Rate 12/31/18 101.1 106 19 159/88 95 20:56 (111) Physical Exam Const: No acute distress Head: Atraumatic Eyes: Normal Conjunctiva ENT: Normal External Ears, Nose and Mouth. Neck: Full range of motion. No meningismus. Resp: Clear to auscultation bilaterally Cardio: Regular rate and rhythm, no murmurs Abd: Soft, non tender, non distended. Normal bowel sounds. Negative Khan's. Negative McBurney's. Patient able to jump up and down on exam. Skin: No petechiae or rashes Back: No midline or flank tenderness Ext: No cyanosis, or edema Neur: Awake and alert Psych: Normal Mood and Affect Result Diagram: 12/31/182238 Results 24 hrs Laboratory Tests Test 12/31/18 22:39 12/31/18 22:51 White Blood Count 14.1 10^3/ul Red Blood Count 5.16 10^6/ul Hemoglobin 14.4 g/dl Hematocrit 44.2 % Mean Corpuscular Volume 85.7 fl Mean Corpuscular Hemoglobin 27.9 pg Mean Corpuscular Hemoglobin Concent 32.6 g/dl Red Cell Distribution Width 12.7 % Platelet Count 283 10^3/UL Mean Platelet Volume 10.0 fl Immature Granulocytes % 0.500 % Neutrophils % 72.0 % Lymphocytes % 20.4 % Monocytes % 5.4 % Eosinophils % 1.4 % Basophils % 0.3 % Nucleated Red Blood Cells % 0.0 /100WBC Immature Granulocytes # 0.070 10^3/ul Neutrophils # 10.2 10^3/ul Lymphocytes # 2.9 10^3/ul Monocytes # 0.8 10^3/ul Eosinophils # 0.2 10^3/ul Basophils # 0.0 10^3/ul Nucleated Red Blood Cells # 0.0 10^3/ul POC Beta HCG, Qualitative NEGATIVE Current Medications Medications Dose Sig/Susan Start Time Status Last (Trade) Ordered Route PRN Stop Time Admin Dose Reason Admin Ondansetron 4 mg ONCE STAT 12/31/18 DC 12/31/18 HCl (Zofran IV 22:16 12/31/18 22:57 Inj) 22:23 Ketorolac 30 mg ONCE STAT 12/31/18 DC 12/31/18 Tromethamine IV 22:16 12/31/18 22:56 (Toradol) 22:23 10 mg ONCE ONCE 12/31/18 DC 12/31/18 Dexamethasone IV 22:30 8/4/19 22:56 (Decadron) 22:31 Procedures/MDM MDM: Strep test was ordered and results were positive. Patient was given Decadron in the ER to help with some of the edema discharged with Rx for penicillin as well as ibuprofen. I have low suspicion for epiglottitis, peritonsilar abscess, ludwigs angina, retropharyngeal abscess, airway obstruction, or other emergent etiologies based on patients exam and history. Gallbladder ultrasound was within normal limits. I have low suspicion for acute coronary syndrome, AAA, mesenteric ischemia, lower lobe pneumonia, DKA, bowel perforation, cholecystitis, choledocholithiasis, ascending cholangitis, hepatic abscess, pancreatitis, PUD, splenic rupture, diverticulitis, pyelonephritis, nephrolithiasis, appendicitis, , ectopic , PID, ovarian torsion or tubo-ovarian abscess. At this time, patient is stable for discharge and outpatient management. I have instructed the patient to follow-up with his/her primary care physician in 1 day. I have discussed with the patient the possibility of needing to see a specialist for further workup and imaging studies if symptoms persist. I have instructed the patient to promptly return to the ER for any new or worsening symptoms including but not limited to increased pain, fever, nausea, vomiting, weakness or LOC. The patient and/or family expressed understanding of and agreement with this plan. All questions were answered. Home care instructions were provided. DISCLAIMER: Inadvertent spelling and grammatical errors are likely due to EHR/dictation software use and do not reflect on the overall quality of patient care. Also, please note that the electronic time recorded on this note does not necessarily reflect the actual time of the patient encounter. Departure Diagnosis: Primary Impression: Strep throat Condition: ANGELI Ortiz Dec 31, 2018 22:43
[2018-12-31 23:59] VITALS: BP 138/77; PULSE 77; RESP 16
== END 2018-12-31 23:59 | disposition home or self-care (01) ==
LOC: FTE 20:51
DX: J02.0 Streptococcal pharyngitis (principal)
CPT/HCPCS: 36415; 76705; 80053; 81001; 81025; 83690; 85025; 86308; 87880; 96374; 96375; 99285; J1100; J1885; J2405

== ENCOUNTER 2019-02-12 00:52 | Emergency (ER) | payer BC ==
[~2019-02-12] VITALS: Ht 160 cm; Wt 115.8 kg
[2019-02-12 00:55] VITALS: BP 139/78; PULSE 92; RESP 16; Ht 160 cm; Wt 115.8 kg
[2019-02-12] MEDS ORDERED: KETOROLAC 30 MG INJ IM STA (01:25)
== END 2019-02-12 01:49 | disposition home or self-care (01) ==
LOC: FTE 00:52
DX: M77.01 Medial epicondylitis, right elbow (principal); M77.02 Medial epicondylitis, left elbow
CPT/HCPCS: 81025; 96372; J1885; Z7502